=== PATIENT | male | born 1955 | race Caucasian/White ===

== ENCOUNTER 2017-02-17 19:49 | Emergency (ER) | payer OTHER ==
--- NOTE | ~2017-02-17 | CT4 ---
[facility] A Service of [facility] RADIOLOGY TEXT RESULTS PATIENT: YVONNE VAZQUEZ LOCATION: SED : 57 UNIT #: [id number] AGE: [address]: Gregory Reddy MD SEX: M ORDER DR: [id number] [place] [id number] E MR#: [id number] Acc #: [id number] NAME: YVONNE VAZQUEZ : 1955 SEX: M STUDY DATE/TIME: 02/17/2017 20:48 UNIT: SED ROOM: STUDY DESCRIPTION: CT Abd and Pelv Wo Cont Attending Physician: Gregory Reddy M.D. Ordering Physician: Yusuf Hernandez Aprn Primary Care Physician: Mira Uriostegui M.D. MEDICAL IMAGING REPORT This report is preliminary unless electronic signature is present. EXAM CT abdomen and pelvis without contrast HISTORY 61-year-old lower left-sided back pain, nausea, vomiting, sudden onset prior to admission. TECHNIQUE Axial images performed through the abdomen and pelvis without contrast. Multiplanar reconstructed images reviewed at a workstation. This CT exam was performed with one or more of the following radiation dose reduction techniques: automatic exposure control, adjustment of mA and/or kV according to patient size, and iterative reconstruction. FINDINGS ABDOMEN: Lung bases unremarkable except for a 3.0 mm nodule right lower lobe anteriorly. This most likely represents a granuloma. The liver demonstrates a low-attenuation lesion measuring 1.5 cm compatible with a hepatic cyst. Gallbladder and spleen appear normal. Pancreas and adrenal glands unremarkable. There is moderate left-sided hydronephrosis and hydroureter with a 3.0 mm left distal ureteral stone just above the UVJ. There are probably two small nonobstructing intrarenal stones. Right kidney unremarkable. Visualized GI tract, to include the appendix, is normal. Retroperitoneum unremarkable. PELVIS: Bladder decompressed. Prostate appears normal. The osseous structures show L4-5 degenerative disc changes. IMPRESSION [facility] A Service of [facility] RADIOLOGY TEXT RESULTS PATIENT: YVONNE VAZQUEZ LOCATION: [facility] : 57 UNIT #: [id number] AGE: [address]: Gregory Reddy MD SEX: M ORDER DR: 3.0 mm distal left ureteral stone just above the UVJ with moderate left-sided hydronephrosis and hydroureter. Dictated by... Wesley De Paz M.D. THIS IS AN ELECTRONICALLY VERIFIED REPORT Wesley De Paz M.D. at 02/18/2017 3:10 PM Mikael TD: 02/18/2017 10:38 JOB #: [id number] MEDICAL IMAGING REPORT Page 1 of 1
[2017-02-17 20:38] LABS: BASOPHIL% 0.6 % (0-2.5); DIFF IND NO; EOSINOPHIL# 0.1 X10e3 (0-0.7); EOSINOPHIL% 0.7 % (0.0-7.0); HEMATOCRIT 45.7 % (38.0-50.0); HEMOGLOBIN 15.6 gm/dL (13.0-16.0); LYMPHOCYTE# 1.1 X10e3 (1.0-3.5); MEAN CELL VOLUME 92.2 FL (83-96); MEAN CORPUSCULAR HEMOGLOBIN 31.5 PG (28-34); MEAN CORPUSCULAR HGB CONC 34.2 g/dL (30-36); MEAN PLATELET VOLUME 9.9 FL (6.5-11.5); MONOCYTE# 0.6 X10e3 (0-1.0); MONOCYTE% 7.2 % (3.0-12.0); NEUTROPHIL# 6.7 X10e3 (1.5-7.1); NEUTROPHIL% 78.5 % (40-75); PLATELET COUNT 168 X10e3 (140-420); RED BLOOD COUNT 4.95 X10e (3.90-5.60); RED CELL DISTRIBUTION WIDTH 14.1 % (11.0-15.5); WHITE BLOOD COUNT 8.5 X10e3 (4.0-10.5)
[2017-02-17 20:40] LABS: URINE SOURCE CLEAN CATCH
[2017-02-17 20:42] LABS: URINE APPEARANCE CLEAR; URINE BILIRUBIN NEG (NEG); URINE BLOOD 3+ (NEG); URINE COLOR YELLOW; URINE GLUCOSE NEG (NORM); URINE KETONE NEG (NEG); URINE LEUKOCYTE ESTERASE NEG (NEG); URINE NITRATE NEG (NEG); URINE PH 5.5 (5-8); URINE PROTEIN TRACE (NEG); URINE SPECIFIC GRAVITY >=1.030 (1.003-1.035)
[2017-02-17 20:43] LABS: MICRO INDICATED? YES
[2017-02-17 20:44] LABS: CULTURE INDICATED? NO; URINE BACTERIA NEG (NEG); URINE RBC 25-50 /[HPF] (0-2); URINE SQUAMOUS EPITHELIAL CELL FEW /[HPF]; URINE WBC 0-2 /[HPF] (0-5)
[2017-02-17 20:45] LABS: URINE AMORPHOUS SEDIMENT AMORP URATES; URINE MUCUS PRESENT
[2017-02-17 20:54] LABS: ALBUMIN SERUM 4.9 g/dL (3.5-5.0); BILIRUBIN, DIRECT 0.1 mg/dL (0.0-0.2); BILIRUBIN,INDIRECT 0.9 mg/dL (0.0-0.9); BUN/CREATININE RATIO 17.85; CALCIUM SERUM 9.2 mg/dL (8.4-10.2); CREATININE SERUM 1.4 mg/dL (0.6-1.4); GLOM FILT RATE Estimated 54.2 mL/min (>60); PROTEIN TOTAL SERUM 7.9 g/dL (6.0-8.3)
== END 2017-02-18 00:24 | disposition home or self-care (01) ==
LOC: SED 19:49
PROVIDERS: Nurse Practitioner Family
DX: N13.2 Hydronephrosis with renal and ureteral calculous obstruction (principal); Z86.19 Personal history of other infectious and parasitic diseases; Z98.890 Other specified postprocedural states
CPT/HCPCS: 36415; 74176; 80048; 80076; 81003; 82150; 83690; 85025; 96361; 96374; 96375; 99284; J1170; J1885; J2270; J2405